=== PATIENT | male | born 1960 | race Caucasian/White ===

== ENCOUNTER 2022-01-20 13:08 | Emergency (ER) | payer SELFPAY ==
[2022-01-20] MEDS ORDERED: NS 0.9% w/ 40 MEQ KCL 1,000 ML BAG IV ONE (13:09)
[2022-01-20 14:46] LABS: #Basophils 0.1 thou/uL (0.0-0.2); #Lymphocytes 2.7 thou/uL (1.20-3.40); #Monocytes 1.3 thou/uL (0.11-0.59); #Neutrophils 7.4 thou/uL (1.40-6.50); %Basophils 0.8 % (0.0-1.0); %Eosinophils 0.3 % (0.0-10.0); %Lymphocytes 23.7 % (21.0-51.0); %Monocytes 11.1 % (0.0-10.0); %Neutrophils 64.1 % (42.0-75.0); Hemoglobin 15.9 g/dL (14.0-18.0); Mean Corpuscular HGB CONC 34.8 g/dL (32.0-36.0); Mean Corpuscular Hemoglobin 30.6 pg (27.0-31.0); Mean Corpuscular Volume 87.8 fL (78.0-98.0); Mean Platelet Volume 7.5 fL (7.4-10.4); Platelet Count 297 thou/uL (130-400); RBC Distribution Width 14.5 % (11.5-14.5); White Blood Cell (WBC) Count 11.6 thou/uL (4.8-10.8)
[2022-01-20 15:01] LABS: ALT (SGPT) Less than 7 U/L (8-55); AST (SGOT) 14 U/L (5-34); Alkaline Phosphatase 140 U/L (40-110); Anion Gap 15 mmol/L (10-20); BUN (Urea Nitrogen) 11 mg/dL (8.4-25.7); Bilirubin, Total 0.9 mg/dL (0.2-1.2); Calc. Creatinine Clearance 0 mL/min (70-130); Calcium 9.3 mg/dL (7.8-10.44); Carbon Dioxide 30 mmol/L (23-31); Chloride 96 mmol/L (98-107); Globulin 3.5 g/dL (2.4-3.5); Glucose 102 mg/dL (80-115); Protein, Total 7.5 g/dL (5.8-8.1); Sodium 138 mmol/L (136-145)
[2022-01-20 15:06] LABS: Potassium 2.8 mmol/L (3.5-5.1)
[2022-01-20 16:01] LABS: Potassium 2.7 mmol/L (3.5-5.1)
[2022-01-20] MEDS ORDERED: Potassium Chloride 20 MEQ TAB ONE (16:03)
[2022-01-20 16:11] LABS: Magnesium 1.9 mg/dL (1.6-2.6)
[2022-01-20] MEDS ORDERED: Amlodipine 5 MG TAB ONE (16:31)
[2022-01-21 00:10] LABS: SARS-CoV-2 PCR by NAA Not Detected (NotDetected)
== END 2022-01-20 17:00 | disposition home or self-care (01) ==
LOC: BURERS 13:08
DX: I10 Essential (primary) hypertension (principal); K59.00 Constipation, unspecified; E87.6 Hypokalemia; J44.9 Chronic obstructive pulmonary disease, unspecified; F17.210 Nicotine dependence, cigarettes, uncomplicated; Z20.822 Contact with and (suspected) exposure to COVID-19
CPT/HCPCS: 36415; 74176; 80053; 83735; 83880; 84484; 85025; 93005; J3480; U0003; U0005

== ENCOUNTER 2023-01-23 11:50 | Emergency (ER) | payer SELFPAY ==
[2023-01-23 12:34] LABS: #Basophils 0.1 thou/uL (0.0-0.2); #Lymphocytes 2.4 thou/uL (1.20-3.40); #Monocytes 0.8 thou/uL (0.11-0.59); #Neutrophils 3.7 thou/uL (1.40-6.50); %Basophils 1.2 % (0.0-1.0); %Eosinophils 0.2 % (0.0-10.0); %Lymphocytes 34.9 % (21.0-51.0); %Monocytes 10.8 % (0.0-10.0); %Neutrophils 52.9 % (42.0-75.0); Hemoglobin 13.7 g/dL (14.0-18.0); Mean Corpuscular Hemoglobin 29.1 pg (27.0-31.0); Mean Corpuscular Volume 83.1 fl (78.0-98.0); Mean Platelet Volume 7.9 fL (7.4-10.4); Platelet Count 251 10x3/uL (130-400); RBC Distribution Width 13.7 % (11.5-14.5); Red Blood Cell (RBC) Count 4.71 mill/uL (4.70-6.10); White Blood Cell (WBC) Count 6.9 10x3/uL (4.8-10.8)
[2023-01-23 12:49] LABS: ALT (SGPT) 9 U/L (8-55); AST (SGOT) 16 U/L (5-34); Albumin 4.3 g/dL (3.4-4.8); Alkaline Phosphatase 129 U/L (40-110); Anion Gap 14 mmol/L (10-20); BUN (Urea Nitrogen) 8 mg/dL (8.4-25.7); Bilirubin, Total 0.5 mg/dL (0.2-1.2); Calc. Creatinine Clearance 0 mL/min (70-130); Calcium 9.1 mg/dL (7.8-10.44); Carbon Dioxide 25 mmol/L (23-31); Chloride 104 mmol/L (98-107); Estimated GFR 68; Globulin 3.6 g/dL (2.4-3.5); Glucose 133 mg/dL (80-115); Potassium 3.5 mmol/L (3.5-5.1); Protein, Total 7.9 g/dL (5.8-8.1); Sodium 139 mmol/L (136-145)
[2023-01-23] MEDS ORDERED: Aspirin Chewable 81 MG TAB ONE (12:53)
== END 2023-01-23 17:41 | disposition short-term general hospital (02) ==
LOC: BURERS 11:50
DX: I10 Essential (primary) hypertension (principal); R29.700 NIHSS score 0; J44.9 Chronic obstructive pulmonary disease, unspecified; F17.210 Nicotine dependence, cigarettes, uncomplicated
CPT/HCPCS: 70450; 80053; 83880; 84484; 85025; 93005

== ENCOUNTER 2024-11-09 14:14 | Emergency (ER) | payer MEDICARE, OTHER | END 2024-11-09 15:25 | disposition home or self-care (01) | LOC: BURERS 14:14 | DX: J06.9 Acute upper respiratory infection, unspecified (principal); I10 Essential (primary) hypertension; J44.9 Chronic obstructive pulmonary disease, unspecified; F17.210 Nicotine dependence, cigarettes, uncomplicated | CPT/HCPCS: 71046 ==